=== PATIENT | male | born 1990 | race Caucasian/White ===

== ENCOUNTER 2019-01-24 17:59 | Emergency (ER) | payer OTHER ==
[~2019-01-24] VITALS: Ht 190.5 cm; Wt 70.3 kg
[~2019-01-24 17:59] MED LIST: BACTRIM DS TAB1 EACH PO; NORCO 5-325 TA1 EACH PO
[2019-01-24] MEDS ORDERED: PENICILLIN V P500 MG PO (18:09)
== END 2019-01-24 20:00 | disposition home or self-care (01) ==
LOC: ED 17:59
PROC: 0C9XXZ0 Drainage of Lower Tooth, External Approach, Single (ICD-10-PCS; principal; 2019-01-24)
DX: K04.7 Periapical abscess without sinus (principal); F17.200 Nicotine dependence, unspecified, uncomplicated
CPT/HCPCS: 41800; 99282-25; J0561

== ENCOUNTER 2019-12-11 11:26 | Emergency (ER) | payer OTHER, BC ==
[~2019-12-11] VITALS: Ht 190.5 cm; Wt 70.3 kg
[~2019-12-11 11:26] MED LIST changes: +PENICILLIN V P500 MG PO
[2019-12-11] MEDS ORDERED: AUGMENTIN 875-1 EACH PO (12:16)
== END 2019-12-11 12:49 | disposition home or self-care (01) ==
LOC: ED 11:26
DX: S61.451A Open bite of right hand, initial encounter (principal); S10.91XA Abrasion of unspecified part of neck, initial encounter; F17.200 Nicotine dependence, unspecified, uncomplicated; W54.0XXA Bitten by dog, initial encounter
CPT/HCPCS: 73130; 99283-25

== ENCOUNTER 2021-08-05 05:15 | Emergency (ER) | payer OTHER ==
[~2021-08-05] VITALS: Ht 190.5 cm; Wt 77.1 kg
[~2021-08-05 05:15] MED LIST changes: +AUGMENTIN 875-1 EACH PO
--- OUTSIDE RECORDS SUMMARY | 2021-08-05 05:22 | XMS ---
PreManage Notification: GAURAV MAYNARD [employer] No recent Security Events currently on file CRITERIA MET - ED - Positive COVID-19 Lab Result - [facility] PROVIDERS There are no care providers on record at this time. Fariha has no Care Guidelines for this patient. Tyra VISIT COUNT (12 MO.) 1 MAURY Munoz TOTAL 1 NOTE: Visits indicate total known visits. [place] [place]12 [place] 08/05/2021 05:16 MAURY Ha OR TYPE: Emergency COMPLAINT: - HEAD INJURY INPATIENT VISIT TRACKING (12 MO.) No inpatient visits to display in this time frame [email or web address]
== END 2021-08-05 06:17 | disposition home or self-care (01) ==
LOC: ED 05:15
DX: S01.01XA Laceration without foreign body of scalp, initial encounter (principal); S09.90XA Unspecified injury of head, initial encounter; F17.200 Nicotine dependence, unspecified, uncomplicated; W22.8XXA Striking against or struck by other objects, initial encounter
CPT/HCPCS: 12002; 99282-25